=== PATIENT | male | born 1955 | race African-American/Black ===

== ENCOUNTER 2016-10-13 06:37 | Day surgery (SDC) | payer OTHER ==
[~2016-10-13 06:37] MED LIST: Buffered Lidocaine 0.9% SYRIN* 5 ML/SYR SYRINGE INTRADERM ONE
[2016-10-13] MEDS ORDERED: Clindamycin 900 MG IVPREMIX(* 900 MG/50 ML SDV IV ONE (07:19)
[2016-10-13] MEDS ORDERED: Bupivacaine 0.25% SDV* 30 ML ONE ×2 (07:28→09:33)
[2016-10-13] MEDS ORDERED: Buffered Lidocaine 0.9% SYRIN* 5 ML/SYR SYRINGE ONE (07:50)
[2016-10-13] MEDS ORDERED: Lidocaine 2% PF * 5 ML VIAL ONE (07:56)
[2016-10-13] MEDS ORDERED: Propofol* 10 MG/ML 20 ML BTL IV PUSH ONE (07:56)
[2016-10-13] MEDS ORDERED: fentaNYL* 50 MCG/ML 2 ML VIAL (100 MCG VIAL) ONE (07:58)
[2016-10-13] MEDS ORDERED: Phenylephrine IV* 40 MCG/ML 10 ML SYRINGE ONE (08:13)
[2016-10-13] MEDS ORDERED: Ondansetron INJ* 2 MG/ML VIAL ONE (08:32)
[2016-10-13] MEDS ORDERED: fentaNYL* 50 MCG/ML 2 ML VIAL (100 MCG VIAL) IV PRN (08:38)
[2016-10-13] MEDS ORDERED: PROCHLORPERAZINE INJ 5 MG/ML 2 ML VIAL IV PRN (08:38)
[2016-10-13] MEDS ORDERED: HYDROcodone/ACETAMIN 5-325 MG* 1 TAB PO PRN (08:38)
[2016-10-13] MEDS ORDERED: oxyCODONE/Acetamin 5/325 MG* TAB PO PRN (08:38)
[2016-10-13] MEDS ORDERED: Metoprolol Tartrate IV* 1 MG/ML 5 ML VIAL ONE (09:06)
[2016-10-13] MEDS ORDERED: HYDROcodone/ACETAMIN 5-325 MG* 1 TAB ONE (10:04)
[2016-10-13 10:49] VITALS: BP 135/82
--- NOTE | 2016-10-13 23:06 | OP ---
DATE OF OPERATION: 10/13/16 - [facility] DATE OF : 59 SURGEON: Cristo Montilla MD. EMERGENCY ROOM PHYSICIAN: SHAYAN Vieyra. An recovery assistant was needed for the entirety of the procedure to aid with positioning of the arm and retraction. ANESTHESIOLOGIST: Dr. Tressa Centeno. ANESTHESIA: General. PRE-OP DIAGNOSIS: Left severe peripheral ulnar neuropathy with compression at the elbow and at the wrist. POST-OP DIAGNOSIS: Left severe peripheral ulnar neuropathy with compression at the elbow and at the wrist. OPERATIVE PROCEDURE: Left ulnar nerve decompression at the wrist and elbow and in situ decompression of the elbow. INDICATIONS: Beck has significant atrophy in the ulnar innervated intrinsics. He had electrodiagnostic and clinical peripheral ulnar nerve compression. I felt like there was probably some compression at the wrist as well, so I talked to him about the risks and benefits and the expected procedure. He elected to proceed. ESTIMATED BLOOD LOSS: 5 mL. COMPLICATIONS: None. FINDINGS: Expected. DESCRIPTION OF PROCEDURE: Beck was seen in the preoperative holding area and the correct site, side, and procedure were identified. We came back to the operating room and anesthesia was induced. The arm was prepped and draped in the usual fashion and a formal time-out was performed. I began by making a 3 cm incision in the palm that was brought back up across the wrist flexion crease in Thiago type fashion. Dissection was carried down to expose the hook of the hamate and the fascia overlying Guyon's canal. This was released from distal to proximal. The ulnar neurovascular bundle was visualized and dissected free of the fatty tissue surrounding the nerve and the artery. The nerve was identified proximally deep to the artery. The nerve was freed up, down through Guyon's canal and the superficial nerve was retracted with a Ragnell retractor and the deep motor branch of the ulnar nerve was visualized as it came down under the hypothenar muscle fascia going down into the palm of the hand. This tight fascial band was quite tight and it was released just off the base of the hook of the hamate. Once I had the nerve there completely decompressed, I came back proximally and released just a bit more of the superficial fascia proximally. At this point, there was absolutely no compression on the ulnar nerve in the area of the wrist and so I irrigated out the wound. Skin was closed with 4-0 nylon suture. I then turned my attention to the elbow. A curvilinear incision was made centered over the Bowden's ligament in line with the ulnar nerve. Dissection was carried down with the Bovie proximally to the deep fascia. Distally, I bluntly dissected with the tenotomy scissors. The medial antebrachial cutaneous nerve was identified and protected throughout the case. Once I had the superficial dissection done, I went ahead and began my release just proximal to the Bowden's ligament. The fascia was opened with tenotomy scissors and I continued proximally. I placed an appendiceal retractor and retracted the subcutaneous tissue superficially. Under direct visualization, I then used my tenotomy scissors to release the remainder of the fascia overlying the ulnar nerve back up to the arcade of [place]. This was released. I then came back distally and released the Bowden's ligament with the tenotomy scissors. That was a very bulbous area followed by a very pinched and compressed area right at the proximal aspect of Bowden's ligament. The superficial FCU fascia was then released. The two heads of the FCU muscle were split with the [facility] retractor and then the subfascial layer was released with the tenotomy scissors to a level several centimeters distal to the medial epicondyle. I checked the release proximally and distally with my finger. Everything was nicely compressed. There was absolutely no compression on the nerve. The area of the wound was copiously irrigated. The subcutaneous tissue was reapproximated with 3-0 Polysorb suture. Skin was closed with 4-0 nylon suture. The wounds were infiltrated with 0.25% plain Marcaine. The wounds were dressed with Xeroform, 4x4's and ABD at the elbow, sterile Webril and Aman bandages. Tourniquet was deflated. I had exsanguinated the arm with Esmarch and tourniquet had been inflated to 250 mmHg throughout the case. The hand pinked up immediately after tourniquet deflation. He was then woken up and taken to recovery room in stable condition. [id number]/[facility] #: [id number] MTDD
== END 2016-10-13 10:45 | disposition home or self-care (01) ==
LOC: OREAST 06:37
PROVIDERS: ATTEND Orthopaedic Surgery Hand Surgery
DX: G56.22 Lesion of ulnar nerve, left upper limb (principal); I10 Essential (primary) hypertension; J44.9 Chronic obstructive pulmonary disease, unspecified; E78.5 Hyperlipidemia, unspecified; Z87.891 Personal history of nicotine dependence
CPT/HCPCS: A9270-GY; J2405; J2704; J3010

== ENCOUNTER 2017-03-02 08:29 | Day surgery (SDC) | payer OTHER ==
[2017-03-02] MEDS ORDERED: fentaNYL* 50 MCG/ML 2 ML VIAL (100 MCG VIAL) ONE (09:47)
[2017-03-02] MEDS ORDERED: Midazolam* 1 MG/ML 2 ML VIAL (2 MG) ONE (09:48)
[2017-03-02] MEDS ORDERED: Bupivacaine 0.25% SDV* 30 ML ONE ×2 (10:02→10:37)
[2017-03-02] MEDS ORDERED: Propofol* 10 MG/ML 20 ML BTL IV PUSH ONE ×2 (10:33→11:20)
[2017-03-02 13:13] VITALS: BP 133/79
--- NOTE | 2017-03-03 02:36 | OP ---
DATE OF OPERATION: 03/02/17 - [facility] DATE OF : 59 SURGEON: Cristo Montilla MD MILLING MACHINE TENDER: SHAYAN Mccarthy ANESTHESIOLOGIST: Dr. Hubbard. ANESTHESIA: Local MAC. PRE-OP DIAGNOSIS: Onychomycosis, left thumb, index, middle, and ring finger nail plates. POST-OP DIAGNOSIS: Onychomycosis, left thumb, index, middle, and ring finger nail plates. OPERATIVE PROCEDURE: 1. Removal of nail plate, left thumb. 2. Removal of nail plate, left index finger. 3. Removal of nail plate, left middle finger. 4. Removal of nail plate, left ring finger with extensive debridement. INDICATIONS: Beck is a patient who I have taken care of his ulnar nerve in the past. He has pretty severe onycho-mycosis on the left hand. A while back, the left small fingernail fell off and when it grew back, it looked much nicer. We talked about his options. I told him that there is a recurrence rate with removal of the nail plate and systemic and topical treatments. He understands all this. He wanted to see if he could get some improvement as it is really quite bothersome to him. ESTIMATED BLOOD LOSS: 2 mL. COMPLICATIONS: None. FINDINGS: As expected. DESCRIPTION OF PROCEDURE: Beck was seen in the preoperative holding area. We identified the correct side, site and procedures. We came back to the operating room. The arm was prepped and draped in the usual fashion. After I had performed digital blocks with 0.25% Marcaine, formal time-out was performed. I began by exsanguinating the arm with the Esmarch and the tourniquet was inflated to 250 mmHg. I then began on the thumb and using a combination of curved iris scissors and the freer elevator, I was able to avulse off the nail plate. It was very friable and came off in actually a few different pieces. It took a fair amount of time to do this as I had to small fragments from underneath the nail folds. I debrided back a portion of the eponychium as it was clearly very diseased and infected with fungus. Once I had everything completely clean appearing, I went on to the index finger. In similar fashion, I removed the nail plates on the index and then the middle and then finally the ring fingers. It took an extensive amount of time, much longer than normal as the nails were extremely friable and peeled off in layers and came out in a few different pieces. Ultimately, after all the nail plates were removed, I went ahead and took the rongeur and the microcurette and I debrided back the nail beds until the tissue that remained was healthy appearing and all the black and fungally infected tissue was excised. I took a fair amount of time to work under the nail fold and make sure this was the case all the way back to the margins of the nail folds. Once I had everything completely debrided, I went ahead and soaked the fingers in a Betadine saline solution for 5 minutes. I then irrigated them out with normal saline. I took a piece of aluminum foil from a chromic gut wrapper and splinted open the nail folds for each of the fingers, tacking each piece of aluminum foil in place with a couple of 3-0 nylon sutures. Fingertips were then dressed with Xeroform , 4x4's, a 1-inch Gregorio and some Coban and the finger dressings were taped in place. Tourniquet was deflated. The hand pinked up immediately. He was taken to the recovery room in stable condition. Please note that this took much much more time than a normal nail plate removal would take and was much more extensive in the debridement. [id number]/[facility] #: [id number] LORELEI
== END 2017-03-02 14:15 | disposition home or self-care (01) ==
LOC: OREAST 08:29
PROVIDERS: ATTEND Orthopaedic Surgery Hand Surgery
DX: B37.2 Candidiasis of skin and nail (principal); G56.22 Lesion of ulnar nerve, left upper limb; Z87.891 Personal history of nicotine dependence
CPT/HCPCS: 87070; 87073; 87077; 87102; 87205; 88305; 88312; J2250; J2704; J3010

== ENCOUNTER 2017-05-25 12:45 | Day surgery (SDC) | payer OTHER ==
[~2017-05-25 12:45] MED LIST changes: +Dexamethasone IV* 4 MG/ML 1 ML (4 MG) IV SLOW PU ONE; +Dexamethasone IV* 4 MG/ML 1 ML (4 MG) ONE; +Famotidine IV* 10 MG/ML 2 ML (20 mg) IV ONE; +Famotidine IV* 10 MG/ML 2 ML (20 mg) ONE
[2017-05-25] MEDS ORDERED: ceFAZolin 2 GM PREMIX (*) 2 GM/50 ML BAG IVPB ONE (13:08)
[2017-05-25] MEDS ORDERED: Bupivacaine 0.25% SDV* 30 ML ONE (15:16)
[2017-05-25] MEDS ORDERED: fentaNYL* 50 MCG/ML 2 ML VIAL (100 MCG VIAL) ONE (18:32)
[2017-05-25] MEDS ORDERED: Midazolam* 1 MG/ML 5 ML VIAL (5 MG) ONE (18:33)
[2017-05-25] MEDS ORDERED: Lidocaine 2% PF * 5 ML VIAL ONE (18:52)
[2017-05-25] MEDS ORDERED: Propofol* 10 MG/ML 20 ML BTL IV PUSH ONE (18:52)
[2017-05-25] MEDS ORDERED: oxyCODONE/Acetamin 5/325 MG* TAB PO PRN (19:05)
[2017-05-25] MEDS ORDERED: fentaNYL* 50 MCG/ML 2 ML VIAL (100 MCG VIAL) IV PRN (19:05)
[2017-05-25] MEDS ORDERED: Naloxone* 0.4 MG/ML 1 ML VIAL IV PRN (19:05)
[2017-05-25] MEDS ORDERED: Ondansetron INJ* 2 MG/ML VIAL IV PRN (19:05)
[2017-05-25] MEDS ORDERED: HYDROcodone/ACETAMIN 5-325 MG* 1 TAB PO PRN (19:05)
[2017-05-25 20:38] VITALS: BP 150/91
--- NOTE | 2017-05-26 13:14 | OP ---
DATE OF OPERATION: 05/25/17 - [facility] DATE OF : 59 SURGEON: Cristo Montilla MD PROFILE MILL OPERATOR TAPE CONTROL: SHAYAN Ruiz. An therapeutic assistant was needed for the procedure to aid in positioning of the hand and holding the reduction while I passed the wire. ANESTHESIOLOGIST: Tressa Centeno MD ANESTHESIA: Local MAC. PRE-OP DIAGNOSIS: Rigid left small finger Boutonniere deformity. POST-OP DIAGNOSIS: Rigid left small finger Boutonniere deformity. OPERATIVE PROCEDURE: Left small finger distal interphalangeal joint arthrodesis. INDICATIONS: Beck has the aforementioned deformity. I decompressed the ulnar nerve a while back and things were really coming along as far as that was concerned; however, the small finger continues to sit in a hyperextended position at the DIP joint. I talked to Beck about the proposed surgery, I recommended that we fuse the joint to give him stability ____ hyperextension. He agreed and wanted to proceed. ESTIMATED BLOOD LOSS: 2 mL. COMPLICATIONS: None. FINDINGS: As expected. DESCRIPTION OF PROCEDURE: Beck was seen in the preoperative holding area. The correct side, site, and procedure were identified. We came back to the operating room. The arm was prepped and draped in the usual fashion. I performed a digital block. A time-out was performed. I began by exsanguinating the finger and leaving the Tourni-Cot proximally on the finger throughout the case. I made an H-shaped incision over the dorsum of the DIP joint. The terminal extensor tendon was released. The collateral ligaments were released. The joint was and opened the subchondral bone and the remaining cartilages were removed with the rongeur. Once I had nice apposing cancellous bone surfaces, I apposed them and passed the guidewire for a micro Mitek screw. At this point, I thought I could get a little bit more flexion by using the 26-gauge K- wire. I then made another transverse drill hole through the head of the proximal phalanx. I passed a 26-gauge wire in a figure-of-8 fashion through both bone tunnels. A needle emt driver was then used to tension the tension band construct over the dorsum of the joint. Unfortunately, as I was tightening the wire, it just cut through the bone in the distal phalanx. Ultimately, I decided this was not going to provide adequate stabilization, I therefore overdrilled over the guidewire for the micro Acutrak screw. I then placed a 12-mm micro Acutrak screw in standard fashion. This provided excellent compression across the fusion surface. The joint was in full extension as would be expected with the screw. Ultimately, everything was looking nice, so we irrigated the things out. Skin was closed with 4-0 nylon suture. The wound was dressed with Xeroform, 4x4, 1-inch Gregorio, and a clamshell Alumafoam splint. The Tourni-Cot was released during splint placement and finger pinked up immediately. He was taken to the recovery room in stable condition. [id number]/[facility] #: [id number] LORELEI
--- NOTE | 2017-05-26 14:31 | RAD ---
INDICATION: Intraoperative fluoroscopy LEFT fifth finger. COMPARISON: No relevant prior exams available on the [facility] for comparison. TECHNIQUE: 26 seconds fluoroscopy. FINDINGS: The initial spot image documents a cerclage wire at the level of the distal interphalangeal joint. The final 2 spot images document an interference screw traversing the distal interphalangeal joint. IMPRESSION: Procedural fluoroscopy. CPT II Codes: G9500
== END 2017-05-25 20:55 | disposition home or self-care (01) ==
LOC: OREAST 12:45
PROVIDERS: ATTEND Orthopaedic Surgery Hand Surgery
DX: M20.022 Boutonniere deformity of left finger(s) (principal); J44.9 Chronic obstructive pulmonary disease, unspecified; F17.210 Nicotine dependence, cigarettes, uncomplicated; Z86.718 Personal history of other venous thrombosis and embolism; E78.5 Hyperlipidemia, unspecified
CPT/HCPCS: 76000; C1713; C1776; J0690; J1100; J2250; J2704; J3010

== ENCOUNTER → 2018-10-01 05:28 | Day surgery (SDC) | payer OTHER ==
[~2018-10-01 05:28] MED LIST changes: +Acetaminophen TAB* 325 MG ONE; +Acetaminophen TAB* 325 MG PO PRN; -Buffered Lidocaine 0.9% SYRIN* 5 ML/SYR SYRINGE INTRADERM ONE; +Buffered Lidocaine 1% SYRIN* 1 ML/SYRINGE INTRADERM ONE; +Bupivacaine 0.25% SDV PF* 10 ML VIAL INJ ONE; +Clindamycin 900 MG IVPREMIX(* 900 MG/50 ML SDV IV ONE; -Dexamethasone IV* 4 MG/ML 1 ML (4 MG) IV SLOW PU ONE; -Dexamethasone IV* 4 MG/ML 1 ML (4 MG) ONE; +DiMENhydriNATE IV* 50 MG/ML VIAL IV PUSH PRN; -Famotidine IV* 10 MG/ML 2 ML (20 mg) IV ONE; -Famotidine IV* 10 MG/ML 2 ML (20 mg) ONE; +Famotidine TAB* 20 MG ONE; +Famotidine TAB* 20 MG PO ONE; +Lactated Ringers 1000 ML Bag* 1,000 ML IV SCH; +Levalbuterol 0.63MG/3ML NEB* UNIT OF USE INH ONE; +Levalbuterol HFA INHALER* 1 PUFF MDI ONE; +Lidocaine 2% PF * 5 ML VIAL ONE; +Metoclopramide IV* 5 MG/ML 2 ML VIAL IV SLOW PU ONE; +Metoclopramide IV* 5 MG/ML 2 ML VIAL ONE; +Midazolam* 1 MG/ML 2 ML VIAL (2 MG) ONE; +Naloxone* 0.4 MG/ML 1 ML VIAL IV PRN; +Ondansetron INJ* 2 MG/ML VIAL ONE; +Phenylephrine 40 MCG/ML SYRINGE ONE; +Propofol* 10 MG/ML 20 ML BTL ONE; +Succinylcholine* 20 MG/ML 10 ML VIAL ONE; +ceFAZolin 2 GM in NS PREMIX(*) 0 GM/0 ML BAG IVPB ONE; +fentaNYL* 50 MCG/ML 2 ML VIAL (100 MCG VIAL) IV PRN; +fentaNYL* 50 MCG/ML 2 ML VIAL (100 MCG VIAL) ONE; +fentaNYL* 50 MCG/ML 5 ML VIAL (250 MCG VIAL) ONE; +oxyCODONE/Acetamin 5/325 MG* TAB PO PRN
[2018-10-01 12:35] VITALS: BP 116/65
--- NOTE | 2018-10-01 13:59 | OP ---
DATE OF OPERATION: 10/01/18 - [facility] DATE OF : 59 SURGEON: Cristo Montilla MD GEOSCIENCE SPECIALIST: SHAYAN Mccarthy ANESTHESIOLOGIST: Dr. Espinoza. ANESTHESIA: General. PRE-OP DIAGNOSIS: Recurrent left ulnar nerve compression and neuritis of the elbow. POST-OP DIAGNOSIS: Recurrent left ulnar nerve compression and neuritis of the elbow. OPERATIVE PROCEDURE: Revision of left ulnar nerve decompression with conversion to transmuscular transposition and nerve wrapping. Given this was a revision surgery, this was substantially more difficult than a typical ulnar nerve decompression and transposition. INDICATIONS: Mr. Landaverde is 63. He had prior surgery some time ago. He did really well despite having very severe ulnar nerve compression. Preoperatively , he improved dramatically. His atrophy somewhat improved even and the numbness and tingling completely resolved and then starting back near the beginning of year, he started to get some recurrent numbness and tingling in the ring and small fingers and the symptoms have been progressive throughout the course of this year until finally he came in wondering if we could do something so he could get some improvement. I talked to him about revision surgery. I talked to him about the increased risk of revision surgery including wound problems, hematoma, nerve injury and perhaps the most common risk is failure to obtain adequate relief despite doing revision surgery. He understands all this and he wishes to proceed. ESTIMATED BLOOD LOSS: 5 mL. COMPLICATIONS: None. FINDINGS: See above and below. DESCRIPTION OF PROCEDURE: Beck was seen in the preoperative holding area. The correct site, side and procedure were identified. We came back to the operating room where the arm was prepped and draped in the usual fashion and a time-out was performed. The arm was exsanguinated with the Esmarch and the tourniquet was inflated to 250 mmHg. We then abducted and externally rotated the arm. He shoulder does not externally rotate very much but we prompted up on some towels and then reopened his prior curvilinear incision over the cubital tunnel and extended it proximally and distally. Dissection was carried down and full-thickness flaps were raised off of the cubital tunnel. The nerve was dissected out in the [place] non-scarred tissue and then traced back. It looked like the main area of compression was just at the distal aspect of the cubital tunnel where transition to bisecting the FCU muscle looked like it was very kinked and compressed by really a significant band of scar tissue there. I went ahead and performed a full neurolysis to the extent necessary to be able to easily transpose the nerve without any kinking or awkward bending of the nerve. The nerves to the heads of the FCU were dissected out. A little bit of internal neurolysis was performed again for a good length to perform the transposition easily. Once I had performed the neurolysis and excised all the scar tissue, which took quite some time much longer than normally, I went ahead and raised step-cut fascial flaps off my flexor pronator fascia. The muscular septi were excised and when I had a nice soft muscular bed to transpose the nerve on, I went ahead and transposed the nerve and then sewed my 2 flaps together end to end to provide a nice loose fascial sling to keep the nerve in the transposed position. Hemostasis was then obtained with the Bovie and the bipolar cautery. I decided I wanted to wrap the nerve given his propensity for scar tissue and this being a revision surgery and so I took initially a 7 x 40 mm AxoGuard nerve protector but that was too small in width, so I had to convert to a 10 x 40 mm nerve protector and then I went ahead and wrapped the nerve and then the wrap was secured in multiple sites with 6-0 Prolene suture taking great care not to sew the wrap to the nerve. At this point, everything was looking very good. The nerve was transposed. I again checked for hemostasis. Everything was looking very good. I irrigated out the wound one more time. Subcutaneous tissue was reapproximated with 3-0 Vicryl suture, skin was closed with 3-0 Monocryl and Steri-Strips. 0.25% plain Marcaine was infiltrated all about the operative area. Wound was dressed with Xeroform against the Steri-Strips, 4x4's and ABD at the elbow, Webril providing some gentle compression over the surgical site and then a long arm splint with lateral buttress was applied. The tourniquet was deflated. He was taken to the recovery room in stable condition. [id number]/[facility] #: [id number] LORELEI
== END | disposition home or self-care (01) ==
LOC: OR 05:28
PROVIDERS: ATTEND Orthopaedic Surgery Hand Surgery
DX: G56.22 Lesion of ulnar nerve, left upper limb (principal); I10 Essential (primary) hypertension; J44.9 Chronic obstructive pulmonary disease, unspecified; J45.909 Unspecified asthma, uncomplicated; E78.5 Hyperlipidemia, unspecified; G20 Parkinson's disease; F32.9 Major depressive disorder, single episode, unspecified; M54.5 Low back pain
CPT/HCPCS: A9270-GY; C1763; J0330; J0690; J2250; J2405; J2704; J2765; J3010; J3490

== ENCOUNTER 2021-02-10 11:58 | Observation (INO) ==
[2021-02-10] MEDS ORDERED: NS 0.9% 1000 ml BAG 1,000 ML IV ONE (12:04)
[2021-02-10 12:24] LABS: ABS Eosinophils 0.1 10^3/ul (0-0.6); ABS Lymphocytes 1.9 10^3/ul (1.0-4.8); ABS Monocytes 0.5 10^3/ul (0-0.8); ABS Neutrophils 2.6 10^3/ul (1.5-7.7); Eosinophil % 1.3 %; Hematocrit 40 % (42-52); Hemoglobin 13.2 g/dL (14.0-18.0); Lymphocyte % 38.2 %; Mean Corpuscular HGB Conc 33 g/dL (31-36); Mean Corpuscular Hemoglobin 30 pg (27-31); Mean Corpuscular Volume 91 fL (80-94); Mean Platelet Volume 7.2 fL (7.4-10.4); Nucleated Red Blood Cells % 0.1; Platelet Count 268 10^3/uL (150-450); Red Blood Count 4.43 10^6 /uL (4.18-5.48); Red Cell Distribution Width 16 % (10-15); White Blood Count 5.1 10^3/uL (3.5-10.8)
[2021-02-10] MEDS ORDERED: Iodixanol (CONTRAST) 320 MG/ML 100 ML SDV IV ONE (12:32)
[2021-02-10 12:34] LABS: Albumin 3.8 g/dL (3.2-5.2); Calcium 9.3 mg/dL (8.6-10.3); Potassium 3.3 mmol/L (3.5-5.0); Total Bilirubin 0.4 mg/dL (0.2-1.0)
[2021-02-10 12:40] LABS: Albumin/Globulin Ratio 1.3 (1-3); Globulin 2.9 g/dL (2-4); HDL Cholesterol 40.7 mg/dL; Total Protein 6.7 g/dL (6.4-8.9); eGFR CKD-EPI 92.3 (>60)
[2021-02-10 12:56] LABS: Troponin I 0.01 ng/mL (<0.03)
[2021-02-10] MEDS ORDERED: Butalb/Acetamin/Caff TAB 325-50-40MG PO PRN (15:19)
[2021-02-10] MEDS ORDERED: Albuterol HFA INHALER 8 gm MDI INH PRN (15:19)
[2021-02-10] MEDS ORDERED: Albuterol 2.5mg/3 ml (0.083%) NEB.SOLN INH PRN (15:19)
[2021-02-10] MEDS ORDERED: Polyethylene Glycol 3350 17 GM PACKET PO PRN (15:19)
[2021-02-10] MEDS ORDERED: Potassium Chlor 20 meq TAB.ER PO ONE (15:27)
[2021-02-10] MEDS ORDERED: Ondansetron ODT 4 mg TAB 4 MG TAB PO PRN (15:56)
[2021-02-10] MEDS ORDERED: Dextrose 50% Syringe 50 ml 25 GM/50 ML SYRINGE IV PUSH PRN (16:12)
[2021-02-10 17:56] LABS: INR 1.2 (0.86-1.15)
[2021-02-10] MEDS: Mometasone/Formoter 200/5 MDI INH SCH (19:38)
[2021-02-10] MEDS ORDERED: Senna TAB 8.6 mg TAB PO PRN (20:11)
[2021-02-10] MEDS ORDERED: Enoxaparin 40 MG/0.4 ML SYR SUBCUT SCH (21:00)
[2021-02-11] MEDS: Mometasone/Formoter 200/5 MDI INH SCH (07:48)
[2021-02-11] MEDS ORDERED: Venlafaxine XR 75 mg PO SCH (09:00)
[2021-02-11] MEDS ORDERED: SPIRIVA Respimat (tiotropium) 2.5 mcg/inh Inhaler INH SCH (09:00)
[2021-02-11] MEDS ORDERED: Cyanocobalamin INJ 1,000 MCG/ML VIAL 1 ML VIAL IM ONE (09:38)
[2021-02-11 10:48] LABS: Hematocrit 41 % (42-52); Hemoglobin 13.3 g/dL (14.0-18.0); Mean Corpuscular HGB Conc 33 g/dL (31-36); Mean Corpuscular Hemoglobin 29 pg (27-31); Mean Corpuscular Volume 90 fL (80-94); Mean Platelet Volume 7.1 fL (7.4-10.4); Platelet Count 257 10^3/uL (150-450); Red Blood Count 4.52 10^6 /uL (4.18-5.48); Red Cell Distribution Width 16 % (10-15); White Blood Count 3.8 10^3/uL (3.5-10.8)
[2021-02-11] MEDS ORDERED: oxyCODONE/Acetamin 5/325 mg TAB PO PRN (10:59)
[2021-02-11 11:18] LABS: Calcium 9.1 mg/dL (8.6-10.3); Magnesium 2.2 mg/dL (1.9-2.7); Potassium 3.4 mmol/L (3.5-5.0)
[2021-02-11] MEDS ORDERED: Potassium Chlor 20 meq TAB.ER PO ONE (11:25)
[2021-02-11 11:28] LABS: TSH Ultra Thyroid Stim Horm 0.69 mcIU/mL (0.34-5.60)
[2021-02-11 15:10] VITALS: BP 139/73
== END 2021-02-11 17:10 | disposition home or self-care (01) ==
LOC: ED 11:58 → INTOOBSV 15:20 → EDHOLD 15:20 → MEDTELE 17:14
PROVIDERS: ADMIT Hospitalist; ATTEND Hospitalist